=== PATIENT | female | born 1960 | race Caucasian/White ===

== ENCOUNTER 2017-08-28 17:29 | Emergency (ER) | payer OTHER ==
[~2017-08-28] VITALS: Ht 162.6 cm; Wt 105.0 kg
[2017-08-28 17:33] VITALS: BP 169/94
[2017-08-28] MEDS ORDERED: LIDOCAINE-MPF 2% ,5ML ONE (17:54)
[2017-08-28] MEDS ORDERED: DIPH,PERTUSS(ACELL),TET VAC/PF 0.5 ML IM-VACC ONE ×3 (17:56→18:01)
[2017-08-28] MEDS ORDERED: LIDOCAINE 2%, 20ML SQ ONE (18:00)
[2017-08-28] MEDS ORDERED: BACITRACIN ZINC OINT 500U/GM, 0.9 GM ONE ×2 (18:33→18:38)
== END 2017-08-28 19:01 | disposition home or self-care (01) ==
LOC: ED 18:55
DX: S61.211A Laceration without foreign body of left index finger without damage to nail, initial encounter (principal); W26.8XXA Contact with other sharp object(s), not elsewhere classified, initial encounter; Z90.710 Acquired absence of both cervix and uterus; Y93.89 Activity, other specified; Y92.89 Other specified places as the place of occurrence of the external cause; Y99.0 Civilian activity done for income or pay
CPT/HCPCS: 12001; 90471; 90715; 99283